=== PATIENT | female | born 1960 | race Caucasian/White ===

== ENCOUNTER → 2017-10-21 10:38 | Outpatient (CLI) | payer MEDICARE, OTHER ==
[2017-10-22 11:20] LABS: IMMUNOGLOBULIN E 10 IU/mL (0-100)
== END | disposition home or self-care (01) ==
LOC: D.RT 09-10 11:00 → D.LAB 09-10 12:00 → D.RAD 09-10 12:30 → D.RT 10:38
PROVIDERS: Internal Medicine Pulmonary Disease
DX: J44.9 Chronic obstructive pulmonary disease, unspecified (principal)

== ENCOUNTER → 2017-12-18 17:08 | Outpatient (CLI) | payer MEDICARE, OTHER | END | disposition home or self-care (01) | LOC: D.MAMMO 11-19 15:30 | DX: Z12.31 Encounter for screening mammogram for malignant neoplasm of breast (principal) ==